=== PATIENT | male | born 1990 | race American Indian/Alaskan Native ===

== ENCOUNTER 2020-12-13 23:09 | Emergency (ER) | payer SELFPAY ==
--- NOTE | 2020-12-14 00:13 | XRay Report ---
CHEST 2 VIEWS INDICATION: Chest Pain. COMPARISON: None FINDINGS: SUPPORT DEVICES: None. HEART: Within normal limits. LUNGS/PLEURA: No acute air space or interstitial disease. No pneumothorax. ADDITIONAL FINDINGS: None. IMPRESSION: 1. No acute findings. Signer Name: Nabil Fairchild MD Signed: 12/14/2020 12:09 AM Workstation Name: [id number]
[2020-12-14 00:18] LABS: Alanine Aminotransferase 42 units/L (7-56); Albumin 4.6 g/dL (3.9-5); BUN/Creatinine Ratio 14; Blood Urea Nitrogen 15 mg/dL (9-20); Calcium 9.7 mg/dL (8.4-10.2); Hemolysis Index 8
[2020-12-14 00:52] LABS: Basophils % (Auto) 0.6 % (0.0-1.8); Eosinophils # (Auto) 0.2 K/mm3 (0.0-0.4); Eosinophils % (Auto) 3.2 % (0.0-4.3); Hematocrit 46.4 % (35.5-45.6); Hemoglobin 15.9 gm/dl (11.8-15.2); Lymphocytes # (Auto) 1.8 K/mm3 (1.2-5.4); Lymphocytes % (Auto) 36.8 % (13.4-35.0); Mean Corpuscular HGB Conc 34 % (32-34); Mean Corpuscular Volume 82 fl (84-94); Monocytes # (Auto) 0.4 K/mm3 (0.0-0.8); Monocytes % (Auto) 7.3 % (0.0-7.3); Platelet Count 184 K/mm3 (140-440); Red Blood Count 5.65 M/mm3 (3.65-5.03); Red Cell Distribution Width 13.9 % (13.2-15.2)
[2020-12-14] MEDS ORDERED: predniSONE 50 MG TAB PO ONE (01:02)
[2020-12-14] MEDS ORDERED: IBUPROFEN 600 MG TAB PO ONE (01:02)
--- NOTE | 2020-12-14 01:43 | Emergency Department Report ---
ED General Adult HPI - General Chief complaint: Chest Pain Stated complaint: NUMBNESS RT SIDE/NECK/CHEST PAIN Source: patient Mode of arrival: Ambulatory Limitations: No Limitations - History of Present Illness Initial comments: Patient is a 30-year-old -[place] male with no past medical history who presents to the ED with complaint of acute onset persistent right lateral neck pain, right upper arm numbness and tingling, left lateral rib pain and right lower leg tingling sensation after performing strenuous physical exercise at home 6 hours ago. Patient states that the tingling sensation in the right arm and right lateral neck pain concerned him and decided come to the ED for evaluation thinking that he may be having heart attack. Patient denies fall, dizziness, syncope, headache, change in vision, nausea, vomiting, diaphoresis, back pain, abdominal pain, shortness of breath, cough, palpitations or lightheadedness. MD Complaint: Right lateral neck and arm pain; left lateral rib pain -: Sudden, hour(s) (6) Location: neck (Right lateral neck pain), chest (Left lateral rib pain), upper extremity (Right upper arm and neck pain) Radiation: neck (Right lateral neck), extremity (Diffuse right tingling sensation) Severity scale (0 -10): 4 Quality: aching, sharp Consistency: constant Improves with: none Worsens with: none Associated Symptoms: denies other symptoms, chest pain (Left lateral rib pain). denies: confusion, cough, diaphoresis, fever/chills, headaches, loss of appetite, nausea/vomiting, rash, seizure, shortness of breath, syncope, weakness Treatments Prior to Arrival: none - Related Data Previous Rx's Medication Instructions Recorded Last Taken Type Baclofen 20 mg PO Q12H PRN #20 tablet 12/14/20 Unknown Rx Naproxen 500 mg PO Q12H PRN #30 tablet 12/14/20 Unknown Rx predniSONE [Deltasone] 40 mg PO QDAY #10 tab 12/14/20 Unknown Rx Allergies Allergy/AdvReac Type Severity Reaction Status Date / Time No Known Allergies Allergy Unverified 12/13/20 23:26 ED Review of Systems ROS: Stated complaint: NUMBNESS RT SIDE/NECK/CHEST PAIN Other details as noted in HPI Constitutional: denies: chills, fever Eyes: denies: eye pain, eye discharge, vision change ENT: denies: ear pain, throat pain Respiratory: denies: cough, shortness of breath, wheezing Cardiovascular: chest pain (Right lateral rib pain). denies: palpitations Endocrine: no symptoms reported Gastrointestinal: denies: abdominal pain, nausea, diarrhea Genitourinary: denies: urgency, dysuria Musculoskeletal: arthralgia (Right arm pain and tingling sensation; right lateral neck pain), other (Right lower leg tingling sensation; right lateral neck pain). denies: back pain, joint swelling Skin: denies: rash, lesions Neurological: denies: headache, weakness, paresthesias Psychiatric: denies: anxiety, depression Hematological/Lymphatic: denies: easy bleeding, easy bruising ED Past Medical Hx - Past Medical History Previous Medical History?: No - Surgical History Past Surgical History?: No - Social History Smoking Status: Never Smoker - Medications Home Medications: Home Medications Medication Instructions Recorded Confirmed Last Taken Type Baclofen 20 mg PO Q12H PRN #20 tablet 12/14/20 Unknown Rx Naproxen 500 mg PO Q12H PRN #30 tablet 12/14/20 Unknown Rx predniSONE [Deltasone] 40 mg PO QDAY #10 tab 12/14/20 Unknown Rx ED Physical Exam - General Limitations: No Limitations General appearance: alert, in no apparent distress - Head Head exam: Present: atraumatic, normocephalic, normal inspection - Eye Eye exam: Present: normal appearance, PERRL, EOMI Pupils: Present: normal accommodation - ENT ENT exam: Present: normal exam, normal orophraynx, mucous membranes moist, TM's normal bilaterally, normal external ear exam - Neck Neck exam: Present: normal inspection, tenderness (Palpable reproducible right lateral cervical muscle tenderness), full ROM - Respiratory Respiratory exam: Present: normal lung sounds bilaterally, chest wall tenderness (Palpable reproducible lateral left rib tenderness). Absent: respiratory distress, wheezes, rales, rhonchi, stridor, accessory muscle use, decreased breath sounds, prolonged expiratory - Cardiovascular Cardiovascular Exam: Present: regular rate, normal rhythm, normal heart sounds. Absent: systolic murmur, diastolic murmur, rubs, gallop - GI/Abdominal GI/Abdominal exam: Present: soft, normal bowel sounds. Absent: tenderness, guarding, rebound, hyperactive bowel sounds, organomegaly - Extremities Exam Extremities exam: Present: normal inspection, full ROM, tenderness (Palpable right shoulder tenderness), normal capillary refill. Absent: calf tenderness - Back Exam Back exam: Present: normal inspection, full ROM. Absent: tenderness, CVA tenderness (R), CVA tenderness (L), muscle spasm, paraspinal tenderness, vertebral tenderness - Neurological Exam Neurological exam: Present: alert, oriented X3, CN II-XII intact, normal gait, reflexes normal - Psychiatric Psychiatric exam: Present: normal affect, normal mood, anxious - Skin Skin exam: Present: warm, dry, intact, normal color. Absent: rash ED Course Vital Signs 12/13/20 12/14/20 23:26 01:07 Temperature 98.0 F Pulse Rate 62 Respiratory 16 16 Rate Blood Pressure 128/79 O2 Sat by Pulse 98 Oximetry ED Medical Decision Making - Lab Data Result diagrams: 12/13/20 23:36 12/13/20 23:36 - Radiology Data Radiology results: report reviewed, [id number] XRay Report Signed Patient: LEO WRIGHT MR#: [id number] : 1990 Acct:[id number] Age/Sex: 30 / M ADM Date: 12/13/20 Loc: ED Attending Dr: Ordering Physician: ED MD ASHLEY Date of Service: 12/13/20 Procedure(s): XR chest routine 2V Accession Number(s): [id number] cc: ED MD ASHLEY Fluoro Time In Minutes: CHEST 2 VIEWS INDICATION: Chest Pain. COMPARISON: None FINDINGS: SUPPORT DEVICES: None. HEART: Within normal limits. LUNGS/PLEURA: No acute air space or interstitial disease. No pneumothorax. ADDITIONAL FINDINGS: None. IMPRESSION: 1. No acute findings. Signer Name: Nabil Fairchild MD Signed: 12/14/2020 12:09 AM Workstation Name: [id number] Transcribed By: LANA Dictated By: Nabil Fairchild MD Electronically Authenticated By: Nabil Fairchild MD Signed Date/Time: 12/14/208 DD/ TD/TT: - Medical Decision Making This is a 30-year-old -[place] male with no past medical history who presents to the ED with complaint of acute onset persistent right lateral neck pain, right upper arm numbness and tingling, left lateral rib pain and right lower leg tingling sensation after performing strenuous physical exercise at home 6 hours ago. Patient states that the tingling sensation in the right arm and right lateral neck pain concerned him and decided come to the ED for evaluation thinking that he may be having heart attack. In the ED, patient is alert and oriented x3 and is not in any distress but anxious. Vital signs are stable in triage. Chest x-ray shows no acute cardiopulmonary abnormalities or pneumonitis. Lab test results were reviewed and are all nonactionable. Patient's heart score is 0, and patient is PERC negative per Wells criteria. Based on the patient's history of strenuous physical exercises, and given the fact that the symptoms began soon after performing the same, and the fact that this symptoms are reproducible on physical exam suggest that the patient symptoms are likely musculoskeletal muscle strain and cervical radiculopathy. All lab test results are nonactionable including the troponin levels. Patient was treated for pain in the ED and on reevaluation, patient felt better and was discharged home on pain medications and muscle relaxants and advised to follow-up with his primary care physician in 5 to 7 days for reevaluation, and was also advised to return to the ED immediately if symptoms get worse. - Differential Diagnosis Muscle strain; cervical radiculopathy; muscle spasm; Critical care attestation.: If time is entered above; I have spent that time in minutes in the direct care of this critically ill patient, excluding procedure time. ED Disposition Clinical Impression: Cervical radiculopathy Muscle strain of chest wall Qualifiers: Encounter type: initial encounter Qualified Code(s): S29.011A - Strain of muscle and tendon of front wall of thorax, initial encounter Disposition: DC-01 TO HOME OR SELFCARE Is pt being admited?: No Does the pt Need Aspirin: No Condition: Stable Instructions: Muscle Strain, [id number], Cervical Radiculopathy, [id number] Additional Instructions: All lab test results were reviewed and are all nonactionable. Chest x-ray showed no acute cardiopulmonary abnormalities or pneumonitis. Your symptoms are likely due to cervical radiculopathy and muscle strain of chest wall following strenuous physical activity. Therefore take medication as needed for pain and also muscle relaxants as needed, drink plenty of fluids and follow-up with your primary care physician in 5 to 7 days for reevaluation or return to the ED immediately if your symptoms get worse. Prescriptions: Baclofen 20 mg PO Q12H PRN #20 tablet PRN Reason: Muscle Spasm predniSONE [Deltasone] 40 mg PO QDAY #10 tab Naproxen 500 mg PO Q12H PRN #30 tablet PRN Reason: Pain , Severe (7-10) Referrals: [facility] [Provider Group] - 7-10 days Time of Disposition: 01:54 Print Language: SAMMARINESE
[2020-12-14 02:06] VITALS: BP 116/68
--- NOTE | 2020-12-14 13:49 | Electrocardiograph Report ---
[facility] Test Date: 2020-12-13 Test Time: 23:29:07 Pat Name: LEO WRIGHT Department: Room: Gender: M [employer] Contact Printer: : 1990 Requested By: MADI SHIRLEY Order Number: [id number] Reading MD: John Madrigal Measurements Intervals [place] Rate: 64 P: 59 [place]: 154 QRS: 87 QRSD: 92 T: 19 QT: 384 QTc: 398 Interpretive Statements Sinus rhythm No previous ECG available for comparison Electronically Signed On 12-14-2020 13:48:52 EDT by John Madrigal
== END 2020-12-14 02:07 | disposition home or self-care (01) ==
LOC: ED 23:09
DX: S29.011A Strain of muscle and tendon of front wall of thorax, initial encounter (principal); M54.12 Radiculopathy, cervical region; Z79.899 Other long term (current) drug therapy; X58.XXXA Exposure to other specified factors, initial encounter; Y93.89 Activity, other specified; Y92.89 Other specified places as the place of occurrence of the external cause; Y99.8 Other external cause status
CPT/HCPCS: 36415; 71046; 80053; 84484; 85025; 93005; 99284; J7512